=== PATIENT | female | born 1975 | race American Indian/Alaskan Native ===

== ENCOUNTER 2019-08-14 22:55 | Emergency (ER) | payer SELFPAY ==
[2019-08-14 23:00] VITALS: BP 133/80
[2019-08-14] MEDS ORDERED: ONDANSETRON 4 MG/2 ML INJ IV ONE (23:58)
[2019-08-14] MEDS ORDERED: FAMOTIDINE 20 MG/2 ML INJ IV ONE (23:58)
[2019-08-14] MEDS ORDERED: MORPHINE 4 MG/1 ML INJ IV ONE (23:58)
[2019-08-14] MEDS ORDERED: SODIUM CHLORIDE 0.9% 1000 ML 1,000 ML IV ONE (23:59)
[2019-08-15 00:06] LABS: Hematocrit 29.3 % (30.3-42.9); Hemoglobin 9.4 gm/dl (10.1-14.3); Mean Corpuscular HGB Conc 32 % (30-34); Mean Corpuscular Volume 74 fl (79-97); Platelet Count 256 K/mm3 (140-440); Red Blood Count 3.94 M/mm3 (3.65-5.03)
[2019-08-15 00:22] LABS: Red Cell Distribution Width 20.1 % (13.2-15.2)
[2019-08-15 00:26] LABS: Alanine Aminotransferase 8 units/L (7-56); Albumin 4.2 g/dL (3.9-5); BUN/Creatinine Ratio 12; Blood Urea Nitrogen 7 mg/dL (7-17); Calcium 8.6 mg/dL (8.4-10.2); Hemolysis Index 2
[2019-08-15 02:07] LABS: Bilirubin,Urine NEG (Negative); Blood,Urine LG (Negative); Color,Urine Straw (Yellow); Protein,Urine <15 mg/dL mg/dL (Negative); Urobilinogen,Urine < 2.0 mg/dL (<2.0)
[2019-08-15] MEDS ORDERED: ALUM-MAG HYDROXIDE-SIMETHICONE 200-200-20MG/5ML ORAL LIQD 30 ML PO ONE (02:19)
[2019-08-15] MEDS ORDERED: KETOROLAC 30 MG/1 ML INJ IV ONE (02:19)
[2019-08-15] MEDS ORDERED: LIDOCAINE VISCOUS 2% 15 ML ORAL LIQD PO ONE (02:19)
[2019-08-15 02:41] LABS: Anisocytosis 1+; Basophils % (Manual) 0 % (0.0-1.8); Eosinophils % (Manual) 0 % (0.0-4.3); Hypochromasia 1+; Total Cells Counted 100
[2019-08-15 02:42] LABS: Platelet Estimate Consistent w Auto
--- NOTE | 2019-08-15 02:54 | Emergency Department Report ---
ED Abdominal Pain HPI - General Chief Complaint: Abdominal Pain Stated Complaint: VOMITTING, ABD PAIN Source: patient Mode of arrival: Ambulatory Limitations: No Limitations - History of Present Illness Initial Comments: This is a 44-year-old -[place] female who presented to the ED with content of acute onset persistent epigastric pain with intermittent nausea and vomiting for the last 4 hours after eating restaurant food. Patient states that she has not been able to keep anything down especially in the last 12 hours. Patient states that she has had multiple episodes of nausea and vomiting and worsening epigastric pain which she states radiates to her substernal chest with a burning sensation. Patient denies shortness of breath, chest pain, dizziness, fever, chills, cough, dysuria, urinary frequency and urgency, vaginal bleeding, diarrhea, constipation, headache, syncope or hematemesis. MD Complaint: abdominal pain, other (nausea and vomiting; epigastric pain) -: Sudden, hour(s) (12) Location: epigastric Radiation: RUQ, chest Migration to: no migration Severity scale (0 -10): 10 Quality: cramping, aching Consistency: constant Improves With: nothing Worsens With: eating, vomiting Context: possible food poisoning Associated Symptoms: denies other symptoms, nausea, vomiting, anorexia. denies: fever, chills, constipation, dysuria, hematemesis, hematochezia, melena, hematuria, other - Related Data Previous Rx's Medication Instructions Recorded Last Taken Type Dicyclomine [Bentyl] 20 mg PO Q6H PRN #24 tablet 08/15/19 Unknown Rx Famotidine [Pepcid] 20 mg PO Q12H #30 tablet 08/15/19 Unknown Rx Ondansetron [Zofran Odt] 4 mg PO Q6HR PRN #20 tab.rapdis 08/15/19 Unknown Rx Allergies Allergy/AdvReac Type Severity Reaction Status Date / Time No Known Allergies Allergy Unverified 08/12/15 18:09 ED Review of Systems ROS: Stated complaint: VOMITTING, ABD PAIN Other details as noted in HPI Constitutional: denies: chills, fever Eyes: denies: eye pain, eye discharge, vision change ENT: denies: ear pain, throat pain Respiratory: denies: cough, shortness of breath, wheezing Cardiovascular: denies: chest pain, palpitations Endocrine: no symptoms reported Gastrointestinal: abdominal pain, nausea, vomiting. 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 - Social History Smoking Status: Never Smoker Substance Use Type: None - Medications Home Medications: Home Medications Medication Instructions Recorded Confirmed Last Taken Type Dicyclomine [Bentyl] 20 mg PO Q6H PRN #24 tablet 08/15/19 Unknown Rx Famotidine [Pepcid] 20 mg PO Q12H #30 tablet 08/15/19 Unknown Rx Ondansetron [Zofran Odt] 4 mg PO Q6HR PRN #20 tab.rapdis 08/15/19 Unknown Rx ED Physical Exam - General Limitations: No Limitations General appearance: alert, in no apparent distress - Head Head exam: Present: atraumatic, normocephalic, normal inspection - Eye Eye exam: Present: normal appearance, PERRL, EOMI Pupils: Present: normal accommodation - ENT ENT exam: Present: normal exam, normal orophraynx, mucous membranes moist, TM's normal bilaterally, normal external ear exam - Neck Neck exam: Present: normal inspection, full ROM - Respiratory Respiratory exam: Present: normal lung sounds bilaterally. Absent: respiratory distress, wheezes, rales, rhonchi, chest wall tenderness, accessory muscle use, decreased breath sounds, prolonged expiratory - Cardiovascular Cardiovascular Exam: Present: regular rate, normal rhythm, normal heart sounds. Absent: systolic murmur, diastolic murmur, rubs, gallop - GI/Abdominal GI/Abdominal exam: Present: soft, tenderness (mild epigastric tenderness), normal bowel sounds. Absent: guarding, rebound, hyperactive bowel sounds, hypoactive bowel sounds - Extremities Exam Extremities exam: Present: normal inspection, full ROM, normal capillary refill - Back Exam Back exam: Present: normal inspection, full ROM. Absent: tenderness, CVA tenderness (L), muscle spasm, paraspinal tenderness, vertebral tenderness - Neurological Exam Neurological exam: Present: alert, oriented X3, CN II-XII intact, normal gait, reflexes normal - Psychiatric Psychiatric exam: Present: normal affect, normal mood - Skin Skin exam: Present: warm, dry, intact, normal color. Absent: rash ED Course Vital Signs 08/14/19 22:58 Temperature 98.9 F Pulse Rate 73 Respiratory 18 Rate Blood Pressure 133/80 O2 Sat by Pulse 100 Oximetry ED Medical Decision Making - Lab Data Result diagrams: 08/14/19 23:25 08/14/19 23:25 - Medical Decision Making This is a 44-year-old [place] female who presented to the ED with epigastric pain and persistent nausea and vomiting intermittently for the last 24 hours after eating food from a restaurant. In the ED, patient is alert and oriented 3 and is not in distress. Patient was treated for pain, also treated with antacids and antiemetics. Lab test results were reviewed and are nonactionable. On reevaluation, patient's pain and nausea and vomiting is well-controlled in the ED with medications, patient is able to drink plenty of fluids with no nausea and vomiting. Patient was discharged home on antiemetics, antacids and pain medications and was advised to follow-up with her primary care physician in 5-7 days for reevaluation, meanwhile maintaining clear liquid diet for 12-24 hours. Patient was also advised return to the ED immediately if symptoms get worse. - Differential Diagnosis Viral gastroenteritis; Vomiting; Dehydration; GERD Critical care attestation.: If time is entered above; I have spent that time in minutes in the direct care of this critically ill patient, excluding procedure time. ED Disposition Clinical Impression: Epigastric abdominal pain, Nausea and vomiting in adult patient, Viral gastroenteritis GERD (gastroesophageal reflux disease) Qualifiers: Esophagitis presence: without esophagitis Qualified Code(s): K21.9 - Gastro-esophageal reflux disease without esophagitis Disposition: - TO HOME OR SELFCARE Is pt being admited?: No Does the pt Need Aspirin: No Condition: Stable Instructions: Abdominal Pain (ED), Gastroesophageal Reflux Disease (ED), Gastroenteritis (ED), Acute Nausea and Vomiting (ED) Additional Instructions: Maintain a clear liquid diet for 12-24 hours, take medications with food, drink plenty of fluids and follow-up with your primary care physician in 5-7 days for reevaluation. Return to the ED immediately if symptoms get worse. Prescriptions: Dicyclomine [Bentyl] 20 mg PO Q6H PRN #24 tablet PRN Reason: ABDOMINAL PAIN Famotidine [Pepcid] 20 mg PO Q12H #30 tablet Ondansetron [Zofran Odt] 4 mg PO Q6HR PRN #20 tab.rapdis PRN Reason: Nausea Referrals: CONNIE NEGRETE MD [Staff Physician] - 7-10 days Forms: Work/School Release Form(ED) Time of Disposition: 02:58 Print Language: ITALIAN
== END 2019-08-15 03:40 | disposition home or self-care (01) ==
LOC: ED 22:55
DX: K21.9 Gastro-esophageal reflux disease without esophagitis (principal); G43.909 Migraine, unspecified, not intractable, without status migrainosus; Z79.899 Other long term (current) drug therapy
CPT/HCPCS: 36415; 80053; 81001; 83690; 84703; 85007; 85025; 96361; 96374; 96375; 99283; J1885; J2270; J2405; J7030